=== PATIENT | female | born 1965 | race Caucasian/White ===

== ENCOUNTER 2020-02-19 23:15 | Emergency (ER) | payer OTHER ==
[~2020-02-19] VITALS: Ht 170.2 cm; Wt 131.5 kg
[2020-02-20 00:02] LABS: HEMATOCRIT 45.8 % (37.0-47.0); HEMOGLOBIN 15.7 gm/dL (12.0-15.0); MCH 30.2 pg (26.0-34.0); MCHC 34.2 g/dL (28.0-37.0); MCV 88.5 fL (80.0-100.0); PLATELET COUNT 260 thou/uL (150-400); RBC 5.18 mil/uL (4.20-5.00); RDW 13.9 % (10.5-14.5); WBC 15.7 thou/uL (4.0-11.0)
[2020-02-20 00:20] LABS: ALBUMIN 3.3 g/dL (3.4-5.0); ANION GAP 7 mmol/L (7-16); BUN 38 mg/dL (7-18); CHLORIDE 100 mmol/L (98-107); CO2 30 mmol/L (21-32); CREATININE 1.5 mg/dL (0.6-1.0); DIRECT BILIRUBIN < 0.1 mg/dL (<0.1-0.2); GLUCOSE 126 mg/dL (74-106); SGOT 16 U/L (15-37); SGPT 23 U/L (30-65); SODIUM 137 mmol/L (136-145); TOTAL BILIRUBIN 0.6 mg/dL (0.2-1.0); TOTAL PROTEIN 7.2 g/dL (6.4-8.2)
[2020-02-20 00:22] LABS: POTASSIUM 4.3 mmol/L (3.5-5.1)
[2020-02-20] MEDS ORDERED: PRINIVIL10 MG PO (00:24)
[2020-02-20] MEDS ORDERED: PACERONE 200 M200 M1 PO (00:24)
[2020-02-20] MEDS ORDERED: LIPITOR40 MG PO (00:24)
[2020-02-20] MEDS ORDERED: XARELTO20 MG PO (00:24)
[2020-02-20] MEDS ORDERED: DILTIAZEM ER240 MG PO (00:25)
[2020-02-20] MEDS ORDERED: ASA81BEC PO (00:26)
[2020-02-20 01:13] LABS: ABSOLUTE NEUTROPHILS 8.3 thou/uL (1.4-8.2); ATYPICAL LYMPHS 4 %; MYELOCYTES 1 %; PROMYELOCYTES 1 %
[2020-02-20 03:12] VITALS: BP 145/84
--- NOTE | 2020-02-22 07:59 | EKG ---
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[facility] : 1965 Requested By: Martine Jordan Order Number: [id number] MD: Ibrahima Sagastume Measurements Intervals [place] Rate: 61 P: WI: 203 QRS: 22 QRSD: 112 T: 55 QT: 512 QTc: 516 Interpretive Statements Atrial-paced complexes Borderline prolonged WI interval Poor R wave progression Prolonged QT interval Baseline wander in lead(s) V1,V2 No previous ECG available for comparison Electronically Signed On 02-22-2020 7:59:37 CDT by Ibrahima Sagastume [email or web address] <ELECTRONICALLY SIGNED> By: Ibrahima Sagastume MD, [facility] 02/22/20 0759 2320 Ibrahima Sagastume MD, [facility] /EPI
== END 2020-02-20 03:13 | disposition home or self-care (01) ==
LOC: ER 23:15
PROVIDERS: Emergency Medicine
DX: U07.1 COVID-19 (principal); F41.9 Anxiety disorder, unspecified; I48.91 Unspecified atrial fibrillation; I50.9 Heart failure, unspecified; F17.210 Nicotine dependence, cigarettes, uncomplicated; Z95.0 Presence of cardiac pacemaker

== ENCOUNTER 2020-04-05 02:30 | Emergency (ER) | payer OTHER ==
[~2020-04-05] VITALS: Ht 170.2 cm; Wt 130.6 kg
[~2020-04-05 02:30] MED LIST: ASA81BEC PO; DILTIAZEM ER240 MG PO; LIPITOR40 MG PO; PACERONE 200 M200 M1 PO; PRINIVIL10 MG PO; XARELTO20 MG PO
[2020-04-05] MEDS ORDERED: QUETIAPINE FUM100 MG PO (02:38)
[2020-04-05] MEDS ORDERED: ROXICODONE5 MG PO (02:39)
[2020-04-05] MEDS ORDERED: METOPROLOL SUCC25 M1 PO (02:39)
[2020-04-05] MEDS ORDERED: LOPRESSOR50 PO (02:39)
[2020-04-05] MEDS ORDERED: TYLENOL325 M1 PO (03:42)
[2020-04-05 03:51] VITALS: BP 121/92
--- NOTE | 2020-04-06 07:31 | EKG ---
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 : 1965 Requested By: Albaro Johnson Order Number: [id number] MD: Bernard Disla Measurements Intervals [place] Rate: 128 P: [place]: QRS: 70 QRSD: 173 T: -81 QT: 378 QTc: 552 Interpretive Statements Atrial fibrillation IVCD, consider atypical LBBB Compared to ECG 02/19/2020 23:20:06 Atrial-paced complex(es) or rhythm no longer present Poor R-wave progression no longer present Prolonged QT interval no longer present Electronically Signed On 04-06-2020 7:31:41 CDT by Bernard Disla [email or web address] <ELECTRONICALLY SIGNED> By: Bernard Disla MD, FACC 04/06/20 0731 6 6 Bernard Disla MD, FAC /EPI
== END 2020-04-05 03:52 | disposition home or self-care (01) ==
LOC: ER 02:30
DX: M54.5 Low back pain (principal); M79.604 Pain in right leg; M79.605 Pain in left leg; I48.91 Unspecified atrial fibrillation; I25.2 Old myocardial infarction; I50.9 Heart failure, unspecified; F17.210 Nicotine dependence, cigarettes, uncomplicated; Z95.0 Presence of cardiac pacemaker; Z79.899 Other long term (current) drug therapy; Z79.82 Long term (current) use of aspirin; W19.XXXA Unspecified fall, initial encounter; Y93.89 Activity, other specified; Y92.89 Other specified places as the place of occurrence of the external cause; Y99.8 Other external cause status